=== PATIENT | female | born 1980 | race Caucasian/White ===

== ENCOUNTER 2016-05-01 11:16 | Emergency (ER) | payer MEDICAID ==
[~2016-05-01] VITALS: Ht 167.6 cm; Wt 66.0 kg
[~2016-05-01 11:16] MED LIST: IBUP100T29; PREN-46 PO
[2016-05-01 11:25] VITALS: Ht 167.6 cm; Wt 66.0 kg
[2016-05-01 13:40] LABS: ADD SCAN DIFF NO
[2016-05-01 13:47] LABS: BASOPHILS % 0.4 % (0.0-2.0); EOSINOPHILS # 0.2 10^3/ul (0.0-0.5); HEMOGLOBIN 12.6 g/dl (12.0-16.0); LYMPHOCYTES # 1.4 10^3/ul (0.8-2.9); LYMPHOCYTES % 14.4 % (15.0-51.0); MEAN CORPUSCULAR HEMOGLOBIN 27.4 pg (29.0-33.0); MEAN CORPUSCULAR HGB CONC 33.2 g/dl (32.0-37.0); MEAN CORPUSCULAR VOLUME 82.6 fl (82.0-101.0); MEAN PLATELET VOLUME 10.7 fl (7.4-10.4); MONOCYTE # 0.5 10^3/ul (0.3-0.9); NEUTROPHIL # 7.7 10^3/ul (1.6-7.5); NEUTROPHILS % 77.8 % (39.0-77.0); PLATELET COUNT 237 10^3/UL (140-415); RED CELL DISTRIBUTION WIDTH 18.7 % (11.5-14.5); WHITE BLOOD COUNT 9.9 10^3/ul (4.8-10.8)
[2016-05-01 13:48] LABS: ADD UMIC YES; URINE BILIRUBIN (Dip) NEGATIVE (NEGATIVE); URINE BLOOD (Dip) NEGATIVE (NEGATIVE); URINE COLOR LT. YELLOW (YELLOW); URINE GLUCOSE (Dip) NEGATIVE (NEGATIVE); URINE KETONES (Dip) NEGATIVE (NEGATIVE); URINE LEUKOCYTE ESTERASE (Dip) TRACE (NEGATIVE); URINE NITRITE (Dip) NEGATIVE (NEGATIVE); URINE TOTAL PROTEIN (Dip) NEGATIVE (NEGATIVE); URINE UROBILINOGEN (Dip) 0.2 E.U./dL (0.1-1.0)
[2016-05-01 13:53] LABS: URINE RBCS 0-2 /HPF (0)
[2016-05-01 13:56] LABS: BACTERIA,URINE RARE
--- NOTE | 2016-05-01 13:57 | RADRPT ---
PROCEDURE: US OB. CLINICAL INDICATION: Pelvic pain and vaginal bleeding. Positive test. TECHNIQUE: Multiple sonographic images of the uterus were obtained with transabdominal so nography. The images were reviewed on a PACS workstation. COMPARISON: No prior studies are available for comparison. FINDINGS: Twin A: heart motion is not present. [place]-rump length is 6.54 cm. Menstrual age by ultrasound dates is 12 weeks 6 days. Twin B: heart motion is not present. [place]-rump length is 6.13 cm. Menstrual age by ultrasound dates is 12 weeks 4 days. There is a 2.5 cm in maximal diameter anterior fibroid in the uterus. IMPRESSION: 1. Twin gestation with demise of both twins. 2. Menstrual age by ultrasound dates is 12 weeks 6 days. RPTAT: QQ .Ron Calhoun MD, Date Time Electronically viewed and signed by .Ron Calhoun MD, on 05/01/2016 13:56 .R/
--- NOTE | 2016-05-01 18:08 | ERD ---
ER Documentation Chief Complaint Date/Time DATE: 05/01/16 TIME: 18:03 Chief Complaint 14wks sent for ultrasound, no heart tone (PORTER ORTIZ PA-C) HPI Patient is a 35-year-old female with an unknown last menstrual period sometime in December/2016 who is A2 who presents to the ED with repeat ultrasound as sent from her OB doctor from [facility]. She states that she is she was sent here to check for heart tones as there were no heart tones at her visit. She denies vaginal bleeding, pelvic pain, back pain, nausea, vomiting, diarrhea or abdominal pain. She has no complaints today. Denies leg pain or swelling. Denies chest pain, cough, shortness of breath or difficulty breathing. (PORTER ORTIZ PA-C) ROS All systems reviewed and are negative except as per history of present illness. (PORTER ORTIZ PA-C) Medications Home Meds Reported Medications Vit #108/Iron/Fa ( ONE TABLET) 1 Each Tablet, 1 EACH PO DAILY, #1 09/11/12 Ibuprofen (Ibuprofen Ib) 100 Mg Tab.chew 06/01/09 Allergies Allergies: Coded Allergies: No Known Drug Allergy (Verified Allergy, Unknown, 05/23/09) PMhx/Soc History of Surgery: Yes (c/s x 2) Anesthesia Reaction: No Hx Neurological Disorder: No Hx Respiratory Disorders: No Hx Cardiac Disorders: No Hx Miscellaneous Medical Probl: No Hx Alcohol Use: No Hx Substance Use: No Hx Tobacco Use: No Smoking Status: Never smoker (PORTER ORTIZ PA-C) FmHx Family History: No coronary disease, No diabetes, No other (PORTER ORTIZ PA-C) Physical Exam Vitals Vital Signs Date Time Temp Pulse Resp B/P Pulse Ox O2 Delivery O2 Flow Rate FiO2 05/01/16 11:25 98.4 96 19 143/84 99 (MADDI,OFELIA) Physical Exam GENERAL: Well-developed, well-nourished female. Appears in no acute distress. HEAD: Normocephalic, atraumatic. EYES: Pupils are equally reactive bilaterally. EOMs grossly intact. No conjunctival erythema. ENT: Moist mucous membranes. No uvula deviation. No kissing tonsils. No exudates. NECK: Supple. No lymphadenopathy or thyromegaly. No meningismus. negative kernig. negative brudinski. LUNG: Clear to auscultation bilaterally. No rhonchi, wheezing, rales or coarse breath sounds. HEART: Regular rate and rhythm. No murmurs, rubs or gallops. ABDOMEN: No scars, ecchymosis or rashes noted. Soft, nontender, and nondistended. Positive bowel sounds in all four quadrants. No rebound tenderness , no guarding. (-) McBurneys point tenderness. No CVA tenderness. BACK: No midline tenderness. SKIN: Normal color. Warm and dry. No rashes or lesions. Capillary refill < 2 seconds (PORTER ORTIZ PA-C) Result Diagram: 05/01/16 1325 Results 24 hrs Laboratory Tests Test 05/01/16 13:25 05/01/16 13:36 Basophils # 0.010^3/ul Basophils % 0.4% Beta HCG, Quantitative 12803.0mIU/ml Eosinophils # 0.210^3/ul Eosinophils % 2.0% Hematocrit 38.0% Hemoglobin 12.6g/dl Lymphocytes # 1.410^3/ul Lymphocytes % 14.4% Mean Corpuscular Hemoglobin 27.4pg Mean Corpuscular Hemoglobin Concent 33.2g/dl Mean Corpuscular Volume 82.6fl Mean Platelet Volume 10.7fl Monocytes # 0.510^3/ul Monocytes % 5.0% Neutrophils # 7.710^3/ul Neutrophils % 77.8% Nucleated Red Blood Cells # 0.010^3/ul Nucleated Red Blood Cells % 0.0/100WBC Platelet Count 13394^3/UL Red Blood Count 4.6010^6/ul Red Cell Distribution Width 18.7% White Blood Count 9.910^3/ul Urine Bacteria RARE Urine Bilirubin NEGATIVE Urine Clarity CLEAR Urine Color LT. YELLOW Urine Epithelial Cells RARE Urine Glucose NEGATIVE% Urine Hemoglobin NEGATIVE Urine Ketones NEGATIVE Urine Leukocyte Esterase TRACE Urine Microscopic RBC 0-2/HPF Urine Microscopic WBC 0-2/HPF Urine Nitrite NEGATIVE Urine Specific [place] <=1.005 Urine Total Protein NEGATIVE Urine Urobilinogen 0.2 E.U./dL Urine pH 7.0 (MADDIOFELIA COBIAN) Procedures/MDM ER COURSE: I kept the patient and/or family informed of laboratory and diagnostic imaging results throughout the emergency room course. EKG, MONITORS, & DIAGNOSTIC IMAGING: [place] [id number] Radiology Main Line: [phone] DIAGNOSTIC IMAGING REPORT Patient: PHANI MARSHALL : 1980 Age: 35 Sex: F MR #: [id number] DOS: 05/01/16 1316 Ordering MD: PORTER ORTIZ PA-C Location: FTE Room/Bed: PROCEDURE: US OB. CLINICAL INDICATION: Pelvic pain and vaginal bleeding. Positive test. TECHNIQUE: Multiple sonographic images of the uterus were obtained with transabdominal sonography. The images were reviewed on a PACS workstation. COMPARISON: No prior studies are available for comparison. FINDINGS: Twin A: heart motion is not present. [place]-rump length is 6.54 cm. Menstrual age by ultrasound dates is 12 weeks 6 days. Twin B: heart motion is not present. [place]-rump length is 6.13 cm. Menstrual age by ultrasound dates is 12 weeks 4 days. There is a 2.5 cm in maximal diameter anterior fibroid in the uterus. IMPRESSION: 1. Twin gestation with demise of both twins. 2. Menstrual age by ultrasound dates is 12 weeks 6 days. RPTAT: QQ .Ron Calhoun MD, MD Date Time Electronically viewed and signed by .Ron Calhoun MD, MD on 05/01/2016 13:56 .R/ CC: PORTER ORTIZ PA-C LAB INTERPRETATION: CBC showed no evidence of systemic infection or severe anemia. UA showed no evidence of leukocytes, nitrites or hematuria. BHC, 574.0, Rh a positive MEDICAL DECISION MAKING: This is a 35-year-old female who presents with ultrasound who is A2.. Vital signs were reviewed. Patient is afebrile. Patient is not hypoxic. Patient is not toxic or ill-appearing. Patient's ultrasound as read radiologist shows no heart tones in twin gestation. I spoke with Dr. Land who came to examine patient at bedside and did examination. Dr. Land will be consulted to see if there is room for a possible D/C or D/E and will let patient know once consultation is made, possible for procedure later tonight. Plan was explained to patient and stable at transfer. I will be handing patient to Ofelia Benítez NP who will be taking care of patient. Dr. Land has spoken to Ofelia Benítez regarding plan. No new complaints and patient is stable at transfer. (PORTER ORTIZ PA-C) Departure Diagnosis: Primary Impression: demise Condition: Stable Comments INSTALLATION SPECIALIST receives report from PORTER ORTIZ PA-C case discussed; Nurse practitioner called by at 0. Physician has discussed plan with incoming gynecology partner, patient will not be admitted for D and E, okay to discharge patient home under [facility] care, patient will follow -up for oral medication induced . I feel the patient is stable for discharge at this time. I have discussed the treatment plan with the patient and family present prior to discharge. Indications for emergent reevaluation such as pain, vaginal bleeding, All questions were answered. Patient verbalizes understanding and agrees with plan of care. (OFELIA BENÍTEZ) PORTER ORTIZ PA-C May 01, 2016 18:08 OFELIA BENÍTEZ May 01, 2016 19:17
[2016-05-01 19:55] VITALS: BP 129/74; PULSE 81; RESP 18; TEMP 99
--- NOTE | 2016-05-02 04:55 | CONS ---
DATE OF ADMISSION: 05/01/2016 DATE OF CONSULTATION: HISTORY OF PRESENT ILLNESS: This patient is 35 years old, 5, para 2, 2, who does not exactly recall her last menstrual period. She went to her regular clinic for checkup. They could not hear the baby's heart, and ultrasound also did not show any heart activity. She was sent to the hospital emergency room to check on the condition of her . In the emergency room, no heart beat could be detected. Ultrasound study reported a twin with no heart tones for either one the twins . PHYSICAL EXAMINATION: GENERAL: She is a well-developed, well-nourished lady with early . VITAL SIGNS: Her blood pressure was 143/84, pulse rate and respirations normal , her temperature 98.4. EARS, NOSE, AND THROAT: Appear to be normal. NECK: Normal. No neck vein distention, no thyromegaly, no lymph node enlargement anywhere in the body. LUNGS: Clear to auscultation and percussion. ABDOMEN: Soft. BREASTS: Free of masses. BACK: No CVA tenderness. PELVIC: She did not have any bleeding. Cervix was closed. Uterus appeared to be around 13 to 14 weeks' gestational size. EXTREMITIES: Within normal. No edema. No varicosity. Knee jerk reflex was normal. LABORATORY DATA: Her lab tests were basically normal. WBC 9.9, Hb 12.6 was her hemoglobin, 38 was hematocrit, and 237,000 platelets. She had the ultrasound done, and a was reported with twins. On twin A, heart motion was not present, [place] rump length was 6.54 cm which coincides with menstrual age of 12 weeks and 6 days. Twin B, again the heart tone was not present, [place] rump length was 16.3 which equates with 12 weeks and 4 days gestation. A fibroid nodule of 2.5 cm in diameter was noted on the uterus. IMPRESSION: Twin gestation with demise. PLAN: The condition of the patient was discussed with her in detail, and we offered either the termination of his here or just to go to the clinic in outpatient setting for termination of . She was sent home to go to her clinic, [facility], for induction of on an ambulatory basis. Dictated By: SARAH JACOBS MD HF/NTS Conf#: [id number] [facility]#: [id number] MTDD
[2016-05-03] MEDS ORDERED: CEFAZOLIN 1 GM INJ ONE (19:02)
[2016-05-03] MEDS ORDERED: FENTAnyl 50 MCG/ML VIAL ONE (19:07)
== END 2016-05-01 19:56 | disposition home or self-care (01) ==
LOC: FTE 11:16
DX: O02.1 Missed abortion (principal)
CPT/HCPCS: 76801; 81001; 84702; 85025; 86900; 86901; Z7502; 81003

== ENCOUNTER 2016-05-03 12:10 | Emergency (ER) | payer MEDICAID ==
[~2016-05-03] VITALS: Wt 65.0 kg
[2016-05-03] VITALS (14 sets, daily range): BP systolic 101–125; BP diastolic 51–73; PULSE 82–105; RESP 15–23; TEMP 98.2
--- NOTE | 2016-05-03 14:47 | ERD ---
ER Documentation Chief Complaint Date/Time DATE: 05/03/16 TIME: 14:42 Chief Complaint sent by clinic for eval of demise. no bleeding or pain. HPI Patient is a 35-year-old female with an unknown last menstrual period sometime in December/2016 who is A2 who presents to the ED for D/C as sent from [facility]. Patient was seen on 05/01/2016 for demise and was examined by Dr. Kennedy who stated that patient could get terminationg at [facility] or to follow up with her doctor at [place]. Patient was sent home to go to [facility]. She states that she went to her clinic today and was sent here for D/C. She denies abdominal pain, pelvic pain, cramping, vaginal bleeding or any other symptoms. She has no symptoms today. Denies chest pain, cough, shortness of breath or difficulty breathing. Denies nausea, vomiting, diarrhea or constipation. ROS All systems reviewed and are negative except as per history of present illness. Medications Home Meds Reported Medications Vit #108/Iron/Fa ( ONE TABLET) 1 Each Tablet, 1 EACH PO DAILY, #1 09/11/12 Ibuprofen (Ibuprofen Ib) 100 Mg Tab.chew 06/01/09 Allergies Allergies: Coded Allergies: No Known Drug Allergy (Verified Allergy, Unknown, 05/23/09) PMhx/Soc History of Surgery: Yes (c/s x 2) Anesthesia Reaction: No Hx Neurological Disorder: No Hx Respiratory Disorders: No Hx Cardiac Disorders: No Hx Miscellaneous Medical Probl: No (PARA-5 -2 AB-2) Hx Alcohol Use: No Hx Substance Use: No Hx Tobacco Use: No Physical Exam Vitals Vital Signs Date Time Temp Pulse Resp B/P Pulse Ox O2 Delivery O2 Flow Rate FiO2 05/03/16 17:18 98.2 97 18 135/76 100 Room Air 05/03/16 12:15 97.9 88 21 134/75 98 Physical Exam GENERAL: Well-developed, well-nourished female. Appears in no acute distress. LUNG: Clear to auscultation bilaterally. No rhonchi, wheezing, rales or coarse breath sounds. HEART: Regular rate and rhythm. No murmurs, rubs or gallops. ABDOMEN: No scars, ecchymosis or rashes noted. Soft, nontender, and nondistended. Positive bowel sounds in all four quadrants. No rebound tenderness , no guarding. (-) McBurneys point tenderness. No CVA tenderness. Extremities: Equal pulses bilaterally. No peripheral clubbing, cyanosis or edema. No unilateral leg swelling. NEUROLOGIC: Alert and oriented. Moving all four extremities. 5/5 strength in all extremities. Normal speech. Steady gait. SKIN: Normal color. Warm and dry. No rashes or lesions. Capillary refill < 2 seconds Result Diagram: 05/03/16 1515 Results 24 hrs Laboratory Tests Test 05/03/16 15:15 Basophils # 0.010^3/ul Basophils % 0.2% Beta HCG, Quantitative 9657.9mIU/ml Eosinophils # 0.110^3/ul Eosinophils % 1.6% Hematocrit 40.3% Hemoglobin 13.1g/dl Lymphocytes # 1.610^3/ul Lymphocytes % 18.2% Mean Corpuscular Hemoglobin 26.9pg Mean Corpuscular Hemoglobin Concent 32.5g/dl Mean Corpuscular Volume 82.8fl Mean Platelet Volume 10.7fl Monocytes # 0.410^3/ul Monocytes % 4.3% Neutrophils # 6.810^3/ul Neutrophils % 75.3% Nucleated Red Blood Cells # 0.010^3/ul Nucleated Red Blood Cells % 0.0/100WBC Platelet Count 03626^3/UL Red Blood Count 4.8710^6/ul Red Cell Distribution Width 18.6% Urine Bacteria FEW Urine Bilirubin NEGATIVE Urine Clarity SLIGHTLY CLOUDY Urine Color LT. YELLOW Urine Epithelial Cells FEW Urine Glucose NEGATIVE% Urine Hemoglobin 3+ Urine Ketones 15 Urine Leukocyte Esterase NEGATIVE Urine Microscopic RBC >200/HPF Urine Microscopic WBC 2-5/HPF Urine Nitrite NEGATIVE Urine Specific [place] 1.015 Urine Total Protein NEGATIVE Urine Urobilinogen 0.2 E.U./dL Urine pH 6.5 White Blood Count 9.010^3/ul Current Medications Medications (Trade) Dose Ordered Sig/Porfirio Route PRN Reason Start Time Stop Time Status Last Admin Dose Admin Cefazolin Sodium/ Dextrose 50 ml @ 100 mls/hr ONCE IV 05/03/16 17:30 Oxytocin/Lactated Ringer's 500 ml @ 0 mls/hr ONCE PRN IV For Hemorrhage Management 05/03/16 17:30 Methylergonovine Maleate (Methergine) 0.2 mg ONCE PRN IM VAGINAL BLEEDING 05/03/16 17:30 Carboprost Tromethamine (Hemabate) 250 mcg ONCE PRN IM VAGINAL BLEEDING 05/03/16 17:30 Misoprostol (Cytotec) 1,[address] VAGINAL BLEEDING 05/03/16 17:30 Procedures/MDM ER COURSE: I kept the patient and/or family informed of laboratory and diagnostic imaging results throughout the emergency room course. EKG, MONITORS, & DIAGNOSTIC IMAGING: [place] [id number] Radiology Main Line: [phone] DIAGNOSTIC IMAGING REPORT Patient: PHANI MARSHALL : 1980 Age: 35 Sex: F MR #: [id number] DOS: 05/03/16 1433 Ordering MD: PORTER ORTIZ PA-C Location: FTE Room/Bed: PROCEDURE: US OB. CLINICAL INDICATION: Pelvic pain and vaginal bleeding. Positive test. History of demise. TECHNIQUE: Multiple sonographic images of the uterus were obtained with transabdominal sonography. The images were reviewed on a PACS workstation. COMPARISON: OB ultrasound dated 05/01/2016 which demonstrated (gestation with demise. FINDINGS: Twin A: heart motion is not present. [place]-rump length is 6.38 cm. Menstrual age by ultrasound dates is 12 weeks 5 days. Twin B: heart motion is not present. [place]-rump length is 6.41 cm. Menstrual age by ultrasound dates is 12 weeks 6 days. The previously noted anterior fibroid in the uterus is not visualized on the current study. IMPRESSION: 1. Twin gestation with demise of both twins. 2. Menstrual age by ultrasound dates is 12 weeks 6 days. 2. No change from 05/01/2016. RPTAT: QQ .Ron Calhoun MD, Date Time Electronically viewed and signed by .Ron Calhoun MD, on 05/03/2016 15:09 .R/ CC: PORTER ORTIZ PA-C LAB INTERPRETATION: CBC showed no evidence of systemic infection or severe anemia. UA showed no evidence of leukocytes, nitrites, 3+ hemoglobin MEDICAL DECISION MAKING: This is a 35-year-old female who presents to the ED for procedure for demise. Vital signs were reviewed. Patient is afebrile. Patient is not hypoxic. Patient was sent from [facility]. I consulted with Dr. De La Cruz. Dr. De La Cruz spoke with Dr. Pablo who will be the admitting doctor. Further labs were ordered and patient will be in surgery later this evening. patient was sent to ED 1 with no new complaints. Patient stable at transfer. Plan was discussed with patient and . All questions were answered. Patient understood and agreed with plan. Departure Diagnosis: Primary Impression: demise Condition: Stable PORTER ORTIZ PA-C May 03, 2016 14:47
--- NOTE | 2016-05-03 15:09 | RADRPT ---
PROCEDURE: US OB. CLINICAL INDICATION: Pelvic pain and vaginal bleeding. Positive test. History of dem ise. TECHNIQUE: Multiple sonographic images of the uterus were obtained with transabdominal sono graphy. The images were reviewed on a PACS workstation. COMPARISON: OB ultrasound dated 05/01/2016 which demonstrated (gestation with demise. FINDINGS: Twin A: heart motion is not present. [place]-rump length is 6.38 cm. Menstrual age by ultrasound dates is 12 weeks 5 days. Twin B: heart motion is not present. [place]-rump length is 6.41 cm. Menstrual age by ultrasound dates is 12 weeks 6 days. The previously noted anterior fibroid in the uterus is not visualized on the current study. IMPRESSION: 1. Twin gestation with demise of both twins. 2. Menstrual age by ultrasound dates is 12 weeks 6 days. 2. No change from 05/01/2016. RPTAT: QQ .Ron Calhoun MD, MD Date Time Electronically viewed and signed by .Ron Calhoun MD, on 05/03/2016 15:09 .R/
[2016-05-03 15:26] LABS: ADD SCAN DIFF NO
[2016-05-03 15:32] LABS: ADD UMIC YES; URINE BILIRUBIN (Dip) NEGATIVE (NEGATIVE); URINE BLOOD (Dip) 3+ (NEGATIVE); URINE COLOR LT. YELLOW (YELLOW); URINE GLUCOSE (Dip) NEGATIVE (NEGATIVE); URINE KETONES (Dip) 15 (NEGATIVE); URINE LEUKOCYTE ESTERASE (Dip) NEGATIVE (NEGATIVE); URINE NITRITE (Dip) NEGATIVE (NEGATIVE); URINE TOTAL PROTEIN (Dip) NEGATIVE (NEGATIVE); URINE UROBILINOGEN (Dip) 0.2 E.U./dL (0.1-1.0)
[2016-05-03 16:02] LABS: BACTERIA,URINE FEW; URINE RBCS >200 /HPF (0)
[2016-05-03 16:18] LABS: BASOPHILS % 0.2 % (0.0-2.0); EOSINOPHILS # 0.1 10^3/ul (0.0-0.5); EOSINOPHILS % 1.6 % (0.0-7.0); HEMATOCRIT 40.3 % (37.0-47.0); HEMOGLOBIN 13.1 g/dl (12.0-16.0); LYMPHOCYTES # 1.6 10^3/ul (0.8-2.9); LYMPHOCYTES % 18.2 % (15.0-51.0); MEAN CORPUSCULAR HEMOGLOBIN 26.9 pg (29.0-33.0); MEAN CORPUSCULAR HGB CONC 32.5 g/dl (32.0-37.0); MEAN CORPUSCULAR VOLUME 82.8 fl (82.0-101.0); MEAN PLATELET VOLUME 10.7 fl (7.4-10.4); MONOCYTE # 0.4 10^3/ul (0.3-0.9); MONOCYTES % 4.3 % (0.0-11.0); NEUTROPHIL # 6.8 10^3/ul (1.6-7.5); NEUTROPHILS % 75.3 % (39.0-77.0); PLATELET COUNT 260 10^3/UL (140-415); RED BLOOD COUNT 4.87 10^6/ul (4.20-5.40); RED CELL DISTRIBUTION WIDTH 18.6 % (11.5-14.5)
[2016-05-03] MEDS ORDERED: OXYTOCIN 30 UNITS/LR 500 ML IV PRN (17:30)
[2016-05-03] MEDS ORDERED: MISOPROSTOL 200 MCG TAB PR PRN (17:30)
[2016-05-03] MEDS ORDERED: METHYLERGONOVINE 0.2 MG INJ IM PRN (17:30)
[2016-05-03] MEDS ORDERED: CARBOPROST 250 MCG INJ IM PRN (17:30)
[2016-05-03] MEDS ORDERED: CEFAZOLIN 2 GM/50 ML (PMX) 50 ML IV SCH (17:30)
[2016-05-03 17:36] LABS: INR 0.97; PROTIME 12.9 Sec (12.2-14.2)
[2016-05-03 17:37] LABS: PARTIAL THROMBOPLASTIN TIME 27.5 Sec (25.0-35.0)
[2016-05-03 17:42] LABS: ALBUMIN 3.9 g/dl (3.3-4.9)
[2016-05-03 17:44] LABS: CREATININE 0.48 mg/dl (0.44-1.00)
[2016-05-03 17:45] LABS: ALBUMIN/GLOBULIN RATIO 1.18; BILIRUBIN,INDIRECT 0.1 mg/dl (0-1.1); BILIRUBIN,TOTAL 0.1 mg/dl (0.2-1.3); CALCIUM 9.4 mg/dl (8.4-10.2); TOTAL PROTEIN 7.2 g/dl (6.1-8.1)
[2016-05-03] MEDS ORDERED: MIDAZOLAM 1 MG/ML 2 ML INJ ONE (18:53)
[2016-05-03] MEDS ORDERED: PROPOFOL 20 ML ONE (18:59)
[2016-05-03] MEDS ORDERED: FENTAnyl 50 MCG/ML VIAL ONE (19:00)
[2016-05-03] MEDS ORDERED: CEFAZOLIN 1 GM INJ ONE (19:00)
[2016-05-03] MEDS ORDERED: ONDANSETRON 4 MG INJ IV PRN (19:30)
[2016-05-03] MEDS ORDERED: HYDROmorphONE (0.2 MG/ML) 10ML SYG IV PRN ×3 (19:30)
[2016-05-03] MEDS ORDERED: DIPHENHYDRAMINE 50 MG INJ IV PRN (19:30)
[2016-05-03] MEDS ORDERED: METOCLOPRAMIDE 10 MG INJ IV PRN (19:30)
[2016-05-03] MEDS ORDERED: MEPERIDINE 25 MG INJ IV PRN (19:30)
--- NOTE | 2016-05-04 11:30 | OPR ---
DATE OF OPERATION: 05/03/2016 PREOPERATIVE DIAGNOSIS: Missed , twin , 14 weeks. POSTOPERATIVE DIAGNOSIS: Missed , twin , 14 weeks. OPERATION PERFORMED: Dilation and evacuation by a suction D and C. ATTENDING SURGEON: Luis M Pablo MD ANESTHESIOLOGIST: Kristi Gordon MD ESTIMATED BLOOD LOSS: Less than 200 mL. COMPLICATIONS: None. TECHNIQUE: The patient was taken to the operating room where general anesthesia was found to be andre quate. The patient was placed in dorsal lithotomy position. After prep and drape, a weighted specu lum was placed inside the vaginal vault. Anterior lip of the cervix was grasped by single-tooth ten aculum. Cervix was dilated by Hines dilators. Suction tip size 12 was inserted. Intrauterine cavi ty was suctioned, and using a sponge forceps, some tissue was removed. Sharp curettage of end ometrial cavity was done. Suction was inserted and intrauterine cavity was suctioned. Hemostasis a chieved. The patient tolerated the procedure well and was transferred to recovery room in stable co ndition. There was no complication regarding this surgery. The specimen was sent to the pathologis t. Dictated By: LUIS M NAVA/LACEY Conf#: [id number] DID#: [id number]
--- NOTE | 2016-05-04 12:22 | HP ---
DATE OF ADMISSION: 05/03/2016 HISTORY OF PRESENT ILLNESS: This is a 35-year-old 4, para 2 admitted through the emergency room, multiple admissions to the emergency room for missed and abdominal pain. The patient is 14 weeks , twin . Ultrasound showed demise. PAST MEDICAL HISTORY: Denies. PAST SURGICAL HISTORY: Cholecystectomy. ALLERGIES: NKDA. PHYSICAL EXAMINATION: VITAL SIGNS: Stable. GENERAL: Normal. ABDOMEN: Not tender, not distended. GENITAL: Cervix was closed. No blood in vaginal vault. ASSESSMENT AND PLAN: A 35-year-old at 40 weeks' gestational age, twin , missed , a dmitted for dilation and evacuation and suction. Risks, benefits, and alternatives were extensively discussed. The patient signed the consent and was taken to the operating room. Dictated By: NIVIA NAVA/LACEY Conf#: [id number] DID#: [id number]
== END 2016-05-03 21:15 | disposition home or self-care (01) ==
LOC: FTE 12:10 → E/R 21:15
DX: O02.1 Missed abortion (principal)
CPT/HCPCS: 36415; 76801; 80053; 81001; 84702; 85025; 85610; 85730; 86592; 86850; 86900; 86901; 88305; J0690; J2250; J3010; Z7502; Z7512; Z7610; 81003; J2210